=== PATIENT | female | born 1960 | race Two or more races ===

== ENCOUNTER 2021-07-05 10:43 | Emergency (ER) | payer BC ==
[~2021-07-05] VITALS: Ht 157.5 cm; Wt 57.2 kg
[2021-07-05] MEDS ORDERED: ATORVASTATIN CA10 MG PO (11:01)
[2021-07-05] MEDS ORDERED: COZAAR50 MG PO (11:01)
[2021-07-05] MEDS ORDERED: ULTRAM50 MG PO (11:01)
[2021-07-05] MEDS ORDERED: PEPCID AC20 MG PO (11:02)
[2021-07-05] MEDS ORDERED: CYCLOBENZAPRINE5 GM PO (11:03)
== END 2021-07-05 13:20 | disposition home or self-care (01) ==
LOC: ER 10:43
DX: M54.59 Other low back pain (principal)